=== PATIENT | female | born 1980 ===

== ENCOUNTER 2023-01-28 17:41 | Emergency (ER) | payer BC ==
[2023-01-28 19:00] LABS: APPEARANCE,URINE SLT CLOUDY; BILIRUBIN,URINE NEGATIVE (NEGATIVE); COLOR,URINE YELLOW; GLUCOSE,URINE NEGATIVE (NEGATIVE); KETONES,URINE NEGATIVE (NEGATIVE); LEUKOCYTE ESTERASE,URINE MODERATE (NEGATIVE); NITRITE,URINE NEGATIVE (NEGATIVE); OCCULT BLOOD,URINE SMALL (NEGATIVE); PH,URINE 5.5 (5.0-8.0); PROTEIN,URINE NEGATIVE (NEGATIVE); UROBILINOGEN,URINE 0.2 EU/dL (<2.0)
[2023-01-28 19:25] LABS: BACTERIA,URINE FEW (NEGATIVE); EPITHELIAL CELLS,URINE RARE (NONE-FEW); WBC,URINE 65-70 (0-5/HPF)
[2023-01-28] MEDS ORDERED: Cefdinir 300 MG Cap PO ONE (19:50)
[2023-01-28] MEDS ORDERED: Ondansetron 4 MG Tab.DIS PO ONE (19:50)
== END 2023-01-28 20:00 | disposition home or self-care (01) ==
LOC: MW.ED 17:41
DX: N39.0 Urinary tract infection, site not specified (principal); Z88.0 Allergy status to penicillin
CPT/HCPCS: 81001; 81025; 99283; A9270

== ENCOUNTER 2023-06-09 11:05 | Emergency (ER) | payer BC ==
[2023-06-09] MEDS: Lidocaine 1% 5 ML VIAL INJECT ONE (11:44)
[2023-06-09] MEDS: Bupivacaine 0.5% 10 ML SDV INJECT ONE (11:44)
== END 2023-06-09 12:06 | disposition home or self-care (01) ==
LOC: MW.ED 11:05
DX: K08.89 Other specified disorders of teeth and supporting structures (principal); E05.90 Thyrotoxicosis, unspecified without thyrotoxic crisis or storm; Z88.0 Allergy status to penicillin
CPT/HCPCS: 64400; 99282; J0665; 99283; J3490

== ENCOUNTER 2024-05-14 17:18 | Emergency (ER) | payer BC | END 2024-05-14 18:45 | disposition left against medical advice (07) | LOC: MW.ED 17:18 | DX: Z53.21 Procedure and treatment not carried out due to patient leaving prior to being seen by health care provider (principal) ==